=== PATIENT | male | born 1935 | race Caucasian/White ===

== ENCOUNTER 2019-03-21 17:19 | Emergency (ER) | payer BC, MEDICARE ==
[2019-03-21 17:23] VITALS: BP 135/69; PULSE 67
[2019-03-21] MEDS ORDERED: Cephalexin 250 MG Cap PO ONE (20:32)
--- NOTE | 2019-03-21 20:36 | EDM.PDOC ---
ED HPI GENERAL MEDICAL PROBLEM - General Chief Complaint: General Stated Complaint: MEDICAL [facility] Time Seen by Provider: 03/21/19 17:31 Source of Information: Reports: EMS, Retirement Records History Limitations: Reports: Other (alzheimer) - History of Present Illness INITIAL COMMENTS - FREE TEXT/NARRATIVE: THis man lives at a memory care unit, he has alzheimer's disease. Today he was being picked up in a lift and seemed to pass out. His blood pressure was high. He came to when they laid him down. He says he feels fine. His son has nothing to add to the history. - Related Data Allergies Allergy/AdvReac Type Severity Reaction Status Date / Time No Known Allergies Allergy Verified 03/21/19 18:29 Home Meds: Home Meds Donepezil HCl 10 mg PO BEDTIME 01/05/15 [History] Furosemide 20 mg PO DAILY 01/05/15 [History] Potassium Chloride 20 meq PO DAILY 01/05/15 [History] Simvastatin 20 mg PO DAILY 01/05/15 [History] metFORMIN [Glucophage] 500 mg PO DAILY 01/05/15 [History] Ipratropium Alliance 03/21/19 [History] Loratadine 03/21/19 [History] amLODIPine Besylate [Amlodipine Besylate] 03/21/19 [History] hydroCHLOROthiazide [Hydrochlorothiazide] 03/21/19 [History] Past Medical History HEENT History: Reports: Cataract Cardiovascular History: Reports: High Cholesterol, Hypertension Genitourinary History: Reports: Other (See Below) Other Genitourinary History: incontinence Neurological History: Reports: Other (See Below) Other Neuro History: dementia. 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 - Past Surgical History HEENT Surgical History: Reports: Cataract Surgery GI Surgical History: Reports: Hernia, Abdominal ED ROS GENERAL - Review of Systems Review Of Systems: Unable To Obtain ED EXAM, GENERAL - Physical Exam Exam: See Below Exam Limited By: No Limitations General Appearance: Alert, WD/WN, No Apparent Distress Eye Exam: Bilateral Eye: Normal Inspection Ears: Normal External Exam Throat/Mouth: Normal Oropharynx, Other (moist membranes) Head: Atraumatic Neck: Supple Respiratory/Chest: Lungs Clear Cardiovascular: Normal Peripheral Pulses, Regular Rate, Rhythm GI/Abdominal: Non-Tender Extremities: Normal Inspection, No Pedal Edema Neurological: Alert, CN II-XII Intact. No: Oriented Psychiatric: Normal Affect, Normal Mood Skin Exam: Warm, Dry Course - Vital Signs Last Recorded V/S: Last Vital Signs Temp 35.9 C 03/21/19 20:35 Pulse 67 03/21/19 20:35 Resp 18 03/21/19 20:35 BP 135/69 03/21/19 20:35 Pulse Ox 99 03/21/19 20:35 - Orders/Labs/Meds Orders: Active Orders 24 hr Category Date Time Status CULTURE URINE [RM] Stat Lab 03/21/19 20:32 Ordered Labs: Laboratory Tests 03/21/19 03/21/19 03/21/19 Range/Units 19:18 19:18 20:07 WBC 14.6 H (4.5-11.0) K/uL RBC 4.31 (4.30-5.90) M/uL Hgb 11.9 L D (12.0-15.0) g/dL Hct 36.7 L (40.0-54.0) % MCV 85 (80-98) fL MCH 28 (27-31) pg MCHC 32 (32-36) % Plt Count 181 (150-400) K/uL Neut % (Auto) 80 H (36-66) % Lymph % (Auto) 12 L (24-44) % [place] % (Auto) 7 H (2-6) % Eos % (Auto) 0 L (2-4) % Baso % (Auto) 0 (0-1) % Sodium 141 (140-148) mmol/L Potassium 3.2 L (3.6-5.2) mmol/L Chloride 101 (100-108) mmol/L Carbon Dioxide 28 (21-32) mmol/L Anion Gap 15.2 H (5.0-14.0) mmol/L BUN 57 H D (7-18) mg/dL Creatinine 3.5 H (0.8-1.3) mg/dL Est Cr Clr Drug Dosing TNP Estimated GFR (MDRD) 17 L (>60) Glucose 189 H (74-106) mg/dL Calcium 8.7 (8.5-10.1) mg/dL Total Bilirubin 0.7 (0.2-1.0) mg/dL AST 11 L (15-37) U/L ALT 16 (12-78) U/L Alkaline Phosphatase 81 (46-116) U/L Total Protein 7.2 (6.4-8.2) g/dL Albumin 2.9 L (3.4-5.0) g/dL Globulin 4.3 H (2.3-3.5) g/dL Albumin/Globulin Ratio 0.7 L (1.2-2.2) Urine Color Yellow Urine Appearance Cloudy Urine pH 5.0 (4.5-8.0) Ur Specific [place] 1.020 (1.008-1.030) Urine Protein Trace (NEGATIVE) mg/dL Urine Glucose (UA) Normal (NEGATIVE) mg/dL Urine Ketones Negative (NEGATIVE) mg/dL Urine Occult Blood Large (NEGATIVE) Urine Nitrite Negative (NEGAITVE) Urine Bilirubin Negative (NEGATIVE) Urine Urobilinogen Normal (NORMAL) mg/dL Ur Leukocyte Esterase Moderate (NEGATIVE) Urine RBC 30-40 H (0-5) Urine WBC 20-30 H (0-5) Ur Epithelial Cells Few Amorphous Sediment Not seen Urine Bacteria Many Urine Mucus Not seen Meds: Medications Discontinued Medications Generic Name Dose Route Start Last Admin Trade Name Freq PRN Reason Stop Dose Admin Cephalexin 500 mg 03/21/19 20:32 Keflex PO 03/21/19 20:33 ONETIME ONE - Re-Assessments/Exams Free Text/Narrative Re-Assessment/Exam: 03/21/19 20:43 orthostatics normal. NOted UTI. Cuture sent. Departure - Departure Time of Disposition: 20:33 Disposition: Home, Self-Care 01 Condition: Fair Clinical Impression: Near syncope, UTI (urinary tract infection) - Discharge Information Referrals: Scooter Flores MD [Primary Care Provider] - Forms: ED Department Discharge Additional Instructions: Take cephalexin 500 mg 3 times daily for 1 week. If he seems to pass out again when he is in the lift then you should check his blood pressure when he is in the lift and contact his doctor - My Orders Last 24 Hours: My Active Orders 03/21/19 20:32 CULTURE URINE [RM] Stat - Assessment/Plan Last 24 Hours: My Active Orders 03/21/19 20:32 CULTURE URINE [RM] Stat
== END 2019-03-21 21:10 | disposition home or self-care (01) ==
LOC: JP.ED 17:19
DX: R55 Syncope and collapse (principal); N39.0 Urinary tract infection, site not specified; G30.9 Alzheimer's disease, unspecified; F02.80 Dementia in other diseases classified elsewhere, unspecified severity, without behavioral disturbance, psychotic disturbance, mood disturbance, and anxiety; I10 Essential (primary) hypertension; Z98.49 Cataract extraction status, unspecified eye; Z79.84 Long term (current) use of oral hypoglycemic drugs; Z79.899 Other long term (current) drug therapy
CPT/HCPCS: 36415; 80053; 81001; 85025; 87086; 99283; A9270